=== PATIENT | female | born 1960 | race African-American/Black ===

== ENCOUNTER 2017-05-30 09:32 | Outpatient (CLI) | payer OTHER ==
--- NOTE | 2017-05-30 13:34 | Diagnostic Imaging Report ---
Indication: Suspected esophageal laceration status post recent cervical fusion surgery at outside facility Technique: Patient ingested water-soluble contrast with imaging in multiple projections. Imaging concentrated at the area of the esophagus adjacent to the surgical fusion hardware. Subsequently, patient ingested thin liquid barium with imaging in multiple projections. Total fluoroscopy time 4 minutes. Total dose area product 235 dGycm2 Comparison: None Findings: Applications Specialist film demonstrates lower cervical and upper thoracic spine fusion hardware. There is a nasogastric tube, tip which projects at the level gastric antrum. There are midline skin jelani. There are right axillary surgical clips. Lungs and pleural spaces are clear. Imaging of the upper esophagus is somewhat limited, due to considerable motion of the patient with swallowing, suboptimal ability to tolerate ingested material, and obscuration by the fusion hardware. Images with the patient swallowing demonstrates normal motility. No strictures. No definite extraluminal extension of contrast to suggest esophageal tear is demonstrated. No retention of contrast is demonstrated, contrast nearly completely clears with swallowing Impression: Somewhat limited exam, as described. No definite evidence of esophageal injury Findings discussed by phone with Dr. Mendoza
== END 2017-05-30 11:32 | disposition home or self-care (01) ==
LOC: RAD 09:32
DX: K22.8 Other specified diseases of esophagus (principal); Z98.1 Arthrodesis status
CPT/HCPCS: 74220